=== PATIENT | male | born 1965 | race African-American/Black ===

== ENCOUNTER 2017-01-05 18:45 | Emergency (ER) | payer OTHER ==
[2017-01-05 18:53] VITALS: BP 143/87; PULSE 60; RESP 18; TEMP 98; O2SAT 99
--- NOTE | 2017-01-05 19:12 | ED PDOC ---
Upper Extremity Pain/Injury Time Seen by Provider: 01/05/17 18:53 Chief Complaint (Nursing): Upper Extremity Problem/Injury Chief Complaint (Provider): Right arm pain History Per: Patient History/Exam Limitations: no limitations Onset/Duration Of Symptoms: Days, Worse Since (past 2-3 days) Current Symptoms Are (Timing): Still Present Quality: Dull Severity: Moderate Pain Scale Rating Of: 6 Additional Complaint(s): Dona Ojeda is a 51 y/o male who presents to the ED complaining of right forearm/wrist pain, increasing for the past 2 days. States he injured the area last Tuesday12/29/16 and was diagnosed with a fracture, given a splint with hard casting to one side. Patient flew here from [facility] on 01/02/17. States he saw a doctor who recommended he go to ED for an X-Ray. PMD: Unknown Past Medical History Reviewed: Historical Data, Nursing Documentation, Vital Signs Vital Signs: Last Vital Signs Temp 98 F 01/05/17 18:50 Pulse 60 01/05/17 18:50 Resp 18 01/05/17 18:50 BP 143/87 01/05/17 18:50 Pulse Ox 99 01/05/17 18:50 - Medical History PMH: No Chronic Diseases - Surgical History Surgical History: No Surg Hx - Family History Family History: States: No Known Family Hx - Social History Alcohol: None Drugs: Denies - Allergies Allergies/Adverse Reactions: Allergies Allergy/AdvReac Type Severity Reaction Status Date / Time No Known Allergies Allergy Verified 01/05/17 18:50 Review of Systems ROS Statement: Except As Marked, All Systems Reviewed And Found Negative Musculoskeletal: Positive for: Arm Pain (Right forearm and wrist pain) Physical Exam - Reviewed Nursing Documentation Reviewed: Yes Vital Signs Reviewed: Yes - Physical Exam Appears: Positive for: Well, Non-toxic, No Acute Distress Head Exam: Positive for: ATRAUMATIC, NORMAL INSPECTION, NORMOCEPHALIC Skin: Positive for: Normal Color, Warm, Dry Eye Exam: Positive for: EOMI, Normal appearance, PERRL Neck: Positive for: Normal, Painless ROM Pulses-Radial (L): 2+ Pulses-Radial (R): 2+ Extremity: Positive for: Tenderness (Distal radius tenderness. Sensation intact. ), Capillary Refill (< 2 sec). Negative for: Deformity Neurologic/Psych: Positive for: Alert, Oriented. Negative for: Motor/Sensory Deficits - ECG O2 Sat by Pulse Oximetry: 99 (RA) Pulse Ox Interpretation: Normal - Radiology X-Ray: Interpreted by Me, Viewed By Me X-Ray Interpretation: Fracture Medical Decision Making Medical Decision Making: Time: 19:04 Impression: Fracture Initial Plan: --X-Ray Wrist AP LAT POST --Will replace splint Scribe Attestation: Documented by Alondra Horner, acting as a scribe for Karla Ruiz PA-C Provider Scribe Attestation: All medical record entries made by the Scribe were at my direction and personally dictated by me. I have reviewed the chart and agree that the record accurately reflects my personal performance of the history, physical exam, medical decision making, and the department course for this patient. I have also personally directed, reviewed, and agree with the discharge instructions and disposition. Disposition - Clinical Impression Clinical Impression: Distal radius fracture - Disposition Referrals: Wilder Parmar III, MD [Staff Provider] - Disposition: Routine/Home Disposition Time: 20:14 Condition: GOOD Instructions: Wrist Fracture in Adults (ED) Forms: [employer] (Italian)
--- NOTE | 2017-01-06 09:23 | RAD ---
PROCEDURE: Right wrist dated 01/05/2017. HISTORY: Fractured on 12/29, cast removed COMPARISON: No prior study available comparison. FINDINGS: BONES: There is mildly displaced transverse fracture extending through the distal right radial metaphysis JOINTS: Normal. No dislocation. SOFT TISSUES: Normal. OTHER FINDINGS: None. IMPRESSION: Mildly displaced transverse fracture extending through the distal right radial metaphysis
== END 2017-01-05 20:22 | disposition home or self-care (01) ==
LOC: H.ER 18:45
DX: S52.501A Unspecified fracture of the lower end of right radius, initial encounter for closed fracture (principal); X58.XXXA Exposure to other specified factors, initial encounter